=== PATIENT | male | born 1955 | race Caucasian/White ===

== ENCOUNTER 2022-12-12 18:45 | Inpatient (IN) ==
[2022-12-12] MEDS ORDERED: SIMETHICONE CHEW 125 MG TABLET PO PRN (22:15)
[2022-12-12] MEDS ORDERED: ONDANSETRON 4 MG/2 ML VIAL IV PRN (22:15)
[2022-12-12] MEDS: chlordiazePOXIDE 25 MG CAPSULE PO SCH (22:35)
[2022-12-12 22:53] LABS: Basophils # 0.1 10*3/uL (0.0-0.2); Hematocrit 37.3 VOL% (42.0-52.0); Hemoglobin 12.8 GM/DL (14.0-18.0); Immature Granulocytes % 0.3 %; Immature Granulocytes Absolute 0.02 #; Lymphocytes % 17.2 % (21.2-54.2); Mean Corpuscular HGB Conc 34.3 GM/DL (32-36); Mean Corpuscular Volume 102.5 FL (87-102); Mean Platelet Volume 10.9 FL (9.6-12.0); Monocytes # 0.8 10*3/uL (0.11-0.8); Monocytes % 13.2 % (1.7-12.7); Neutrophils % 68.3 % (38.7-73.9); Red Blood Count 3.64 MC/CUMM (3.8-5.5); Red Cell Distribution Width 14.5 % (9.3-17.3); White Blood Count 5.8 T/CUMM (4-12)
[2022-12-12] MEDS: LACTATED RINGERS 1,000 ML IV SCH (22:57)
[2022-12-12] MEDS: LACTULOSE 20 GM/30 ML UDCUP PO SCH (22:57)
[2022-12-12] MEDS ORDERED: THIAMINE INJ 100 MG, FOLIC ACID INJ 1 MG, MULTIVITAMIN INJ 10 ML in SODIUM CHLORIDE 0.9... IV ONE (23:00)
[2022-12-12 23:05] LABS: Platelet Count 33 T/CUMM (130-400)
[2022-12-12 23:14] LABS: Albumin 2.6 G/DL (3.4-5.0); Bilirubin,Direct 1.77 MG/DL (0.0-0.20); Bilirubin,Indirect 0.8 MG/DL (0.0-1.0); Bilirubin,Total 2.6 MG/DL (0.20-1.00); Total Protein 7.2 G/DL (6.4-8.2)
[2022-12-12 23:19] LABS: Platelet Estimate Decreased
[2022-12-12 23:21] LABS: Albumin 2.6 G/DL (3.4-5.0); Bilirubin,Total 2.6 MG/DL (0.20-1.00); Calcium 7.7 MG/DL (8.5-10.1); Osmolality,Calculated 277.4 MOS/KG (273-304); Potassium 3.5 MMOL/L (3.5-5.1); Risk Ratio 3.71; Thyroid Stimulating Hormone 0.927 uIU/ml (0.358-3.74); Total Protein 7.3 G/DL (6.4-8.2)
[2022-12-12 23:27] LABS: Bilirubin,Direct 1.9 MG/DL (0.0-0.20); Bilirubin,Indirect 0.7 MG/DL (0.0-1.0); Bilirubin,Total 2.6 MG/DL (0.20-1.00)
[2022-12-12 23:50] LABS: INR 1.3; PT Patient Result 14.1 SECS (10.1-12.1); Partial Thromboplastin Time 34.2 SECS (23.7-32.9)
[2022-12-13] MEDS: LACTULOSE 20 GM/30 ML UDCUP PO SCH ×6 (01:34→20:47)
[2022-12-13] MEDS ORDERED: MAGNESIUM SULF RIDER 2 GM/50 ML PREMIX IV ONE (02:50)
[2022-12-13 05:10] LABS: Basophils # 0.1 10*3/uL (0.0-0.2); Hematocrit 33.7 VOL% (42.0-52.0); Hemoglobin 11.2 GM/DL (14.0-18.0); Immature Granulocytes % 0.2 %; Immature Granulocytes Absolute 0.01 #; Lymphocytes # 0.9 10*3/uL (1.4-4.0); Lymphocytes % 18.5 % (21.2-54.2); Mean Corpuscular HGB Conc 33.2 GM/DL (32-36); Mean Corpuscular Volume 104.7 FL (87-102); Mean Platelet Volume 11.6 FL (9.6-12.0); Monocytes # 0.8 10*3/uL (0.11-0.8); Monocytes % 16.3 % (1.7-12.7); Red Blood Count 3.22 MC/CUMM (3.8-5.5); Red Cell Distribution Width 14.6 % (9.3-17.3)
[2022-12-13 05:21] LABS: Platelet Count 20 T/CUMM (130-400)
[2022-12-13 05:42] LABS: % Iron Saturation 21.5 % (18-50); Ferritin 94.4 ng/mL (26-388)
[2022-12-13] MEDS: chlordiazePOXIDE 25 MG CAPSULE PO SCH ×4 (05:42→22:18)
[2022-12-13 05:43] LABS: Folate > 24.00 NG/ML (5.38-24.0); Vitamin B12 1992 PG/ML (211-911)
[2022-12-13 05:47] LABS: Band Neutrophils 1 % (0-10); Lymphocytes 11 % (20-55); Total Cells Counted 100
[2022-12-13 05:48] LABS: Platelet Estimate Decreased
[2022-12-13 05:49] LABS: Anisocytosis Slight
[2022-12-13 06:21] LABS: Hepatitis B Core IgM Quant 0.17 Index; Hepatitis B Surface Ag Quant < 0.10 Index; Hepatitis B Surface Ag Result Non-Reactive (NonReactive); Hepatitis C Virus Ab Quant 0.07 Index; Hepatitis C Virus Ab Result Non-Reactive (NonReactive)
[2022-12-13 06:40] LABS: Sedimentation Rate-Westergren 62 MM/HR (0-20)
[2022-12-13] MEDS: PANTOPRAZOLE 40 MG VIAL IV SCH (09:54)
[2022-12-13] MEDS: MULTIVITAMIN (BEROCCA) TABLET PO SCH (09:54)
[2022-12-13] MEDS: DOCUSATE SODIUM 100 MG CAPSULE PO SCH ×2 (09:54→20:47)
[2022-12-13] MEDS: FOLIC ACID 1 MG TABLET PO SCH (09:54)
[2022-12-13] MEDS: THIAMINE 100 MG TABLET PO SCH (09:55)
[2022-12-13] MEDS: LORazepam 2 MG/1 ML VIAL IV PRN ×2 (09:55→14:56)
[2022-12-13 15:58] LABS: Urine Appearance Cloudy (Clear); Urine Color Orange (Yellow)
[2022-12-13 16:04] LABS: Mucus,Urine Few /LPF (Occasional); RBC,Urine 1389 /HPF (0-4)
[2022-12-13 16:05] LABS: Bilirubin,Urine Moderate mg/dL (Negative); Blood, Urine Large mg/dL (Negative); Glucose,Urine (UA) Negative (Negative); Ketones,Urine 15 mg/dL (Negative); Nitrite,Urine Negative (Negative); Protein,Urine 30 mg/dL (Negative); Urine Urobilinogen >= 8.0 eU/dL (<2.0)
[2022-12-13] MEDS: LACTATED RINGERS 1,000 ML IV SCH (17:39)
[2022-12-13] MEDS ORDERED: SODIUM CHLORIDE 0.9% 1,000 ML IV PRN (19:26)
[2022-12-14] MEDS: LACTULOSE 20 GM/30 ML UDCUP PO SCH ×4 (01:42→21:50)
[2022-12-14 05:47] LABS: Basophils % 0.5 % (0.0-0.8); Eosinophils % 0.2 % (0.00-10.9); Hematocrit 30.6 VOL% (42.0-52.0); Hemoglobin 10.5 GM/DL (14.0-18.0); Immature Granulocytes % 0.5 %; Immature Granulocytes Absolute 0.03 #; Lymphocytes # 0.7 10*3/uL (1.4-4.0); Lymphocytes % 12.6 % (21.2-54.2); Mean Corpuscular HGB Conc 34.3 GM/DL (32-36); Mean Corpuscular Volume 103.4 FL (87-102); Mean Platelet Volume 10.8 FL (9.6-12.0); Monocytes # 0.9 10*3/uL (0.11-0.8); Monocytes % 15.6 % (1.7-12.7); Neutrophils % 70.6 % (38.7-73.9); Red Blood Count 2.96 MC/CUMM (3.8-5.5); Red Cell Distribution Width 14.2 % (9.3-17.3); White Blood Count 5.7 T/CUMM (4-12)
[2022-12-14 05:57] LABS: INR 1.3; PT Patient Result 14.1 SECS (10.1-12.1)
[2022-12-14 06:00] LABS: Albumin 2.3 G/DL (3.4-5.0); Bilirubin,Total 4.7 MG/DL (0.20-1.00); Calcium 7.8 MG/DL (8.5-10.1); Osmolality,Calculated 275.5 MOS/KG (273-304); Potassium 2.9 MMOL/L (3.5-5.1); Total Protein 6.1 G/DL (6.4-8.2)
[2022-12-14 06:07] LABS: Platelet Count 17 T/CUMM (130-400)
[2022-12-14 06:36] LABS: Band Neutrophils 1 % (0-10); Lymphocytes 8 % (20-55); Platelet Estimate Decreased; Total Cells Counted 100
[2022-12-14 06:37] LABS: Anisocytosis Slight
[2022-12-14] MEDS: chlordiazePOXIDE 25 MG CAPSULE PO SCH ×3 (07:18→21:48)
[2022-12-14] MEDS: POTASSIUM CHLORIDE RIDER 10 MEQ/100 ML PREMIX IV PRN ×5 (08:38→15:48)
[2022-12-14 10:18] LABS: Hemoglobin A1 (Alkaline) 97.7 % (96.5-98.5); Hemoglobin A2 (Alkaline) 2.3 % (1.5-3.5)
[2022-12-14] MEDS ORDERED: LIDOCAINE 2% 5 ML VIAL ONE (11:49)
[2022-12-14] MEDS ORDERED: propofoL 200 MG/20 ML VIAL IV ONE (11:49)
[2022-12-14] MEDS ORDERED: ETOMIDATE 20 MG/10 ML VIAL IV ONE (11:49)
[2022-12-14] MEDS: LACTATED RINGERS 1,000 ML IV SCH ×2 (12:43→13:38)
[2022-12-14] MEDS: MULTIVITAMIN (BEROCCA) TABLET PO SCH (13:35)
[2022-12-14] MEDS: DOCUSATE SODIUM 100 MG CAPSULE PO SCH ×2 (13:36→21:46)
[2022-12-14] MEDS: THIAMINE 100 MG TABLET PO SCH (13:36)
[2022-12-14] MEDS: FOLIC ACID 1 MG TABLET PO SCH (13:36)
[2022-12-14] MEDS: PANTOPRAZOLE 40 MG VIAL IV SCH (13:36)
[2022-12-14] MEDS: LORazepam 2 MG/1 ML VIAL IV PRN (16:48)
[2022-12-15] MEDS: LORazepam 2 MG/1 ML VIAL IV PRN (02:00)
[2022-12-15] MEDS: LACTATED RINGERS 1,000 ML IV SCH ×3 (02:05→22:47)
[2022-12-15] MEDS: LACTULOSE 20 GM/30 ML UDCUP PO SCH ×4 (03:12→21:09)
[2022-12-15 05:38] LABS: Basophils % 0.6 % (0.0-0.8); Eosinophils # 0.1 10*3/uL (0.0-0.87); Hematocrit 30.8 VOL% (42.0-52.0); Hemoglobin 10.3 GM/DL (14.0-18.0); Immature Granulocytes % 0.5 %; Immature Granulocytes Absolute 0.03 #; Lymphocytes # 0.7 10*3/uL (1.4-4.0); Lymphocytes % 11.4 % (21.2-54.2); Mean Corpuscular HGB Conc 33.4 GM/DL (32-36); Mean Corpuscular Volume 105.8 FL (87-102); Mean Platelet Volume 11.6 FL (9.6-12.0); Monocytes # 0.9 10*3/uL (0.11-0.8); Monocytes % 13.8 % (1.7-12.7); Neutrophils % 72.7 % (38.7-73.9); Red Blood Count 2.91 MC/CUMM (3.8-5.5); Red Cell Distribution Width 13.8 % (9.3-17.3); White Blood Count 6.2 T/CUMM (4-12)
[2022-12-15 05:51] LABS: Platelet Count 29 T/CUMM (130-400)
[2022-12-15] MEDS: chlordiazePOXIDE 25 MG CAPSULE PO SCH ×2 (06:09→14:39)
[2022-12-15 06:14] LABS: Albumin 2.2 G/DL (3.4-5.0); Calcium 8.2 MG/DL (8.5-10.1); Potassium 3.3 MMOL/L (3.5-5.1); Total Protein 5.8 G/DL (6.4-8.2)
[2022-12-15 06:27] LABS: Anisocytosis 1+; Platelet Estimate Decreased
[2022-12-15 06:28] LABS: Macrocytosis Slight
[2022-12-15] MEDS ORDERED: POTASSIUM CHLORIDE 20 MEQ TABLET PO SCH (09:00)
[2022-12-15] MEDS: FOLIC ACID 1 MG TABLET PO SCH (09:09)
[2022-12-15] MEDS: MULTIVITAMIN (BEROCCA) TABLET PO SCH (09:09)
[2022-12-15] MEDS: THIAMINE 100 MG TABLET PO SCH (09:10)
[2022-12-15] MEDS: DOCUSATE SODIUM 100 MG CAPSULE PO SCH ×2 (09:10→21:09)
[2022-12-15] MEDS: PANTOPRAZOLE 40 MG VIAL IV SCH (09:11)
[2022-12-16] MEDS: LACTULOSE 20 GM/30 ML UDCUP PO SCH ×4 (05:34→20:45)
[2022-12-16 05:49] LABS: Basophils # 0.1 10*3/uL (0.0-0.2); Basophils % 0.7 % (0.0-0.8); Eosinophils # 0.1 10*3/uL (0.0-0.87); Eosinophils % 1.4 % (0.00-10.9); Hematocrit 31.5 VOL% (42.0-52.0); Hemoglobin 10.7 GM/DL (14.0-18.0); Immature Granulocytes % 0.3 %; Immature Granulocytes Absolute 0.02 #; Lymphocytes # 0.7 10*3/uL (1.4-4.0); Lymphocytes % 10.1 % (21.2-54.2); Mean Corpuscular Volume 104.3 FL (87-102); Mean Platelet Volume 10.8 FL (9.6-12.0); Monocytes # 0.9 10*3/uL (0.11-0.8); Monocytes % 12.9 % (1.7-12.7); Neutrophils % 74.6 % (38.7-73.9); Platelet Count 46 T/CUMM (130-400); Red Blood Count 3.02 MC/CUMM (3.8-5.5); White Blood Count 7.2 T/CUMM (4-12)
[2022-12-16 06:11] LABS: Albumin 2.2 G/DL (3.4-5.0); Bilirubin,Total 3.6 MG/DL (0.20-1.00); Calcium 8.3 MG/DL (8.5-10.1); Osmolality,Calculated 272.7 MOS/KG (273-304); Potassium 3.2 MMOL/L (3.5-5.1); Total Protein 6.2 G/DL (6.4-8.2)
[2022-12-16 06:13] LABS: Platelet Estimate Decreased
[2022-12-16 06:14] LABS: Anisocytosis Slight; Macrocytosis 1+
[2022-12-16] MEDS ORDERED: MAGNESIUM SULF RIDER 4 GM/100 ML PREMIX IV ONE (08:10)
[2022-12-16] MEDS ORDERED: POTASSIUM BICARB EFFERVESCENT 20 MEQ TAB.EFF PO ONE (08:30)
[2022-12-16] MEDS: POTASSIUM BICARB EFFERVESCENT 20 MEQ TAB.EFF PO SCH (09:08)
[2022-12-16] MEDS: THIAMINE 100 MG TABLET PO SCH (09:08)
[2022-12-16] MEDS: FOLIC ACID 1 MG TABLET PO SCH (09:08)
[2022-12-16] MEDS: DOCUSATE SODIUM 100 MG CAPSULE PO SCH ×2 (09:09→20:44)
[2022-12-16] MEDS: PANTOPRAZOLE 40 MG VIAL IV SCH (09:09)
[2022-12-16] MEDS: LACTATED RINGERS 1,000 ML IV SCH (09:09)
[2022-12-16] MEDS: MULTIVITAMIN (BEROCCA) TABLET PO SCH (09:09)
[2022-12-16] MEDS: LORazepam 2 MG/1 ML VIAL IV PRN (09:15)
[2022-12-17] MEDS: LACTULOSE 20 GM/30 ML UDCUP PO SCH ×4 (03:03→21:17)
[2022-12-17 05:46] LABS: Basophils # 0.1 10*3/uL (0.0-0.2); Basophils % 0.8 % (0.0-0.8); Eosinophils # 0.1 10*3/uL (0.0-0.87); Eosinophils % 1.7 % (0.00-10.9); Hematocrit 30.9 VOL% (42.0-52.0); Hemoglobin 10.2 GM/DL (14.0-18.0); Immature Granulocytes % 0.3 %; Immature Granulocytes Absolute 0.02 #; Lymphocytes # 0.7 10*3/uL (1.4-4.0); Lymphocytes % 10.8 % (21.2-54.2); Mean Corpuscular Volume 105.1 FL (87-102); Mean Platelet Volume 10.5 FL (9.6-12.0); Monocytes # 1.1 10*3/uL (0.11-0.8); Monocytes % 16.7 % (1.7-12.7); Neutrophils % 69.7 % (38.7-73.9); Platelet Count 60 T/CUMM (130-400); Red Blood Count 2.94 MC/CUMM (3.8-5.5); Red Cell Distribution Width 14.3 % (9.3-17.3); White Blood Count 6.6 T/CUMM (4-12)
[2022-12-17 06:07] LABS: Band Neutrophils 1 % (0-10); Eosinophils 5 % (0-10); Lymphocytes 7 % (20-55); Total Cells Counted 100
[2022-12-17 06:08] LABS: Macrocytosis Slight; Platelet Estimate Decreased; Polychromasia Slight
[2022-12-17 06:15] LABS: Albumin 2.2 G/DL (3.4-5.0); Bilirubin,Total 2.9 MG/DL (0.20-1.00); Calcium 8.2 MG/DL (8.5-10.1); Osmolality,Calculated 278.3 MOS/KG (273-304); Potassium 3.4 MMOL/L (3.5-5.1); Total Protein 6.1 G/DL (6.4-8.2)
[2022-12-17] MEDS: LORazepam 2 MG/1 ML VIAL IV PRN ×3 (08:42→22:58)
[2022-12-17] MEDS: FOLIC ACID 1 MG TABLET PO SCH (08:50)
[2022-12-17] MEDS: THIAMINE 100 MG TABLET PO SCH (08:52)
[2022-12-17] MEDS: DOCUSATE SODIUM 100 MG CAPSULE PO SCH (08:54)
[2022-12-17] MEDS: MULTIVITAMIN (BEROCCA) TABLET PO SCH (08:54)
[2022-12-17] MEDS: POTASSIUM BICARB EFFERVESCENT 20 MEQ TAB.EFF PO SCH (08:58)
[2022-12-17] MEDS: PANTOPRAZOLE 40 MG VIAL IV SCH ×2 (09:03→21:17)
[2022-12-17] MEDS: LACTATED RINGERS 1,000 ML IV SCH (16:24)
[2022-12-18 01:56] LABS: Basophils # 0.1 10*3/uL (0.0-0.2); Basophils % 0.9 % (0.0-0.8); Eosinophils # 0.1 10*3/uL (0.0-0.87); Eosinophils % 1.8 % (0.00-10.9); Hematocrit 32.8 VOL% (42.0-52.0); Hemoglobin 11.1 GM/DL (14.0-18.0); Immature Granulocytes % 0.4 %; Immature Granulocytes Absolute 0.03 #; Lymphocytes # 0.9 10*3/uL (1.4-4.0); Lymphocytes % 11.9 % (21.2-54.2); Mean Corpuscular HGB Conc 33.8 GM/DL (32-36); Mean Corpuscular Volume 104.8 FL (87-102); Mean Platelet Volume 10.1 FL (9.6-12.0); Monocytes # 1.4 10*3/uL (0.11-0.8); Monocytes % 18.2 % (1.7-12.7); Neutrophils % 66.8 % (38.7-73.9); Platelet Count 82 T/CUMM (130-400); Red Blood Count 3.13 MC/CUMM (3.8-5.5); Red Cell Distribution Width 14.6 % (9.3-17.3); White Blood Count 7.6 T/CUMM (4-12)
[2022-12-18 02:13] LABS: Albumin 2.4 G/DL (3.4-5.0); Bilirubin,Total 3.3 MG/DL (0.20-1.00); Calcium 8.3 MG/DL (8.5-10.1); Osmolality,Calculated 272.7 MOS/KG (273-304); Potassium 3.5 MMOL/L (3.5-5.1); Total Protein 6.5 G/DL (6.4-8.2)
[2022-12-18 02:20] LABS: Eosinophils 2 % (0-10); Lymphocytes 8 % (20-55); Platelet Estimate Decreased; Total Cells Counted 100
[2022-12-18] MEDS ORDERED: MAGNESIUM SULF RIDER 2 GM/50 ML PREMIX IV ONE (08:00)
[2022-12-18] MEDS: LACTATED RINGERS 1,000 ML IV SCH ×2 (10:25→13:10)
[2022-12-18] MEDS: LACTULOSE 20 GM/30 ML UDCUP PO SCH ×2 (12:13→22:45)
[2022-12-18] MEDS: MULTIVITAMIN (BEROCCA) TABLET PO SCH (12:13)
[2022-12-18] MEDS: THIAMINE 100 MG TABLET PO SCH (12:13)
[2022-12-18] MEDS: POTASSIUM BICARB EFFERVESCENT 20 MEQ TAB.EFF PO SCH (12:13)
[2022-12-18] MEDS: FOLIC ACID 1 MG TABLET PO SCH (12:13)
[2022-12-18] MEDS: PANTOPRAZOLE 40 MG VIAL IV SCH (12:13)
[2022-12-18] MEDS ORDERED: propofoL 200 MG/20 ML VIAL IV ONE (13:52)
[2022-12-18] MEDS ORDERED: LIDOCAINE 2% 5 ML VIAL ONE (13:52)
[2022-12-18] MEDS ORDERED: ETOMIDATE 20 MG/10 ML VIAL IV ONE (13:52)
[2022-12-18] MEDS: PANTOPRAZOLE 40 MG TABLET PO SCH (16:56)
[2022-12-19 05:33] LABS: Basophils # 0.1 10*3/uL (0.0-0.2); Basophils % 1.1 % (0.0-0.8); Eosinophils # 0.1 10*3/uL (0.0-0.87); Eosinophils % 1.2 % (0.00-10.9); Hematocrit 33.3 VOL% (42.0-52.0); Hemoglobin 11.1 GM/DL (14.0-18.0); Immature Granulocytes % 1.1 %; Immature Granulocytes Absolute 0.07 #; Lymphocytes # 0.7 10*3/uL (1.4-4.0); Lymphocytes % 11.1 % (21.2-54.2); Mean Corpuscular HGB Conc 33.3 GM/DL (32-36); Mean Corpuscular Volume 106.7 FL (87-102); Mean Platelet Volume 10.3 FL (9.6-12.0); Monocytes # 1.3 10*3/uL (0.11-0.8); Monocytes % 19.7 % (1.7-12.7); Neutrophils % 65.8 % (38.7-73.9); Platelet Count 88 T/CUMM (130-400); Red Blood Count 3.12 MC/CUMM (3.8-5.5); Red Cell Distribution Width 14.6 % (9.3-17.3); White Blood Count 6.6 T/CUMM (4-12)
[2022-12-19 06:04] LABS: Eosinophils 3 % (0-10); Lymphocytes 9 % (20-55); Platelet Estimate Decreased; Total Cells Counted 100
[2022-12-19 06:05] LABS: Albumin 2.2 G/DL (3.4-5.0); Bilirubin,Total 2.9 MG/DL (0.20-1.00); Calcium 8.1 MG/DL (8.5-10.1); Osmolality,Calculated 276.4 MOS/KG (273-304); Potassium 3.5 MMOL/L (3.5-5.1); Total Protein 6.3 G/DL (6.4-8.2)
[2022-12-19] MEDS: THIAMINE 100 MG TABLET PO SCH (08:42)
[2022-12-19] MEDS: MULTIVITAMIN (BEROCCA) TABLET PO SCH (08:46)
[2022-12-19] MEDS: PANTOPRAZOLE 40 MG TABLET PO SCH ×2 (08:46→16:12)
[2022-12-19] MEDS: FOLIC ACID 1 MG TABLET PO SCH (08:46)
[2022-12-19] MEDS: LACTULOSE 20 GM/30 ML UDCUP PO SCH ×2 (08:46→21:02)
[2022-12-19] MEDS: POTASSIUM BICARB EFFERVESCENT 20 MEQ TAB.EFF PO SCH (08:46)
[2022-12-19] MEDS ORDERED: TUBERCULIN SKIN TEST 0.1 ML SYRINGE INTRADERM ONE (16:49)
[2022-12-20 05:12] LABS: Basophils # 0.1 10*3/uL (0.0-0.2); Eosinophils # 0.1 10*3/uL (0.0-0.87); Eosinophils % 1.5 % (0.00-10.9); Hematocrit 34.1 VOL% (42.0-52.0); Hemoglobin 11.6 GM/DL (14.0-18.0); Immature Granulocytes % 0.4 %; Immature Granulocytes Absolute 0.03 #; Lymphocytes # 0.9 10*3/uL (1.4-4.0); Lymphocytes % 11.9 % (21.2-54.2); Mean Corpuscular Volume 105.2 FL (87-102); Mean Platelet Volume 10.2 FL (9.6-12.0); Monocytes % 28.3 % (1.7-12.7); Neutrophils % 56.9 % (38.7-73.9); Platelet Count 99 T/CUMM (130-400); Red Blood Count 3.24 MC/CUMM (3.8-5.5); Red Cell Distribution Width 14.5 % (9.3-17.3); White Blood Count 7.2 T/CUMM (4-12)
[2022-12-20 05:34] LABS: Calcium 8.8 MG/DL (8.5-10.1); Osmolality,Calculated 275.5 MOS/KG (273-304); Potassium 3.4 MMOL/L (3.5-5.1)
[2022-12-20 05:45] LABS: Atypical Lymphocytes Few; Band Neutrophils 4 % (0-10); Eosinophils 4 % (0-10); Lymphocytes 17 % (20-55); Macrocytosis Slight; Nucleated Red Blood Cells 2 /100 WBC (0-5); Platelet Estimate Decreased; Total Cells Counted 100
[2022-12-20] MEDS ORDERED: POTASSIUM CHLORIDE 20 MEQ TABLET PO ONE (07:27)
[2022-12-20] MEDS: PANTOPRAZOLE 40 MG TABLET PO SCH (08:46)
[2022-12-20] MEDS: THIAMINE 100 MG TABLET PO SCH (08:46)
[2022-12-20] MEDS: POTASSIUM BICARB EFFERVESCENT 20 MEQ TAB.EFF PO SCH (08:46)
[2022-12-20] MEDS: MULTIVITAMIN (BEROCCA) TABLET PO SCH (08:46)
[2022-12-20] MEDS: FOLIC ACID 1 MG TABLET PO SCH (08:47)
[2022-12-20] MEDS: LACTULOSE 20 GM/30 ML UDCUP PO SCH (08:47)
[2022-12-20] MEDS ORDERED: MAGNESIUM OXIDE 400 MG TABLET PO SCH (09:00)
[2022-12-20 11:27] VITALS: BP 105/63
== END 2022-12-20 14:31 | DRG 392 ==
LOC: N.3E 20:48 → SUATTDRO 20:48
PROVIDERS: ADMIT Internal Medicine; ATTEND Internal Medicine